=== PATIENT | female | born 1970 ===

== ENCOUNTER 2017-12-12 09:21 | Emergency (ER) | payer OTHER ==
[2017-12-12 09:37] VITALS: RESP 18; TEMP 99.2
[2017-12-12 11:11] LABS: HCG,QUALITATIVE URINE NEGATIVE (NEGATIVE)
[2017-12-12 11:15] LABS: SQUAMOUS EPITHIAL 1 /hpf (0-5); URINE BACTERIA RARE (<OCC); URINE BILIRUBIN NEGATIVE (NEGATIVE); URINE BLOOD 2+ (NEGATIVE); URINE CLARITY Clear (Clear); URINE COLOR Straw (YELLOW); URINE GLUCOSE (UA) NORMAL (Normal); URINE LEUKOCYTE ESTERASE NEG Leu/uL (Negative); URINE PROTEIN NEGATIVE (NEGATIVE); URINE UROBILINOGEN NORMAL mg/dL (0.2-1.0)
[2017-12-12 11:40] VITALS: O2SAT 100
[2017-12-12 12:15] VITALS: BP 111/77; PULSE 78
--- NOTE | 2017-12-12 12:16 | C.PDOC ---
History Of Present Illness 47 year old female with a history of hypothyroidism presents to the ED for evaluation of numbness to the left side of her face after eating a pear 1 day ago. Patient reports localized swelling to the left side of her face, cough, feeling dizzy, frequent urination, and recent weight gain. Denies allergies to medications, pain to the left side of her face, chest pain, fever, nausea, vomiting, and any other associated symptoms. Time Seen by Provider: 12/12/17 10:32 Chief Complaint (Nursing): Weakness/Neurological Deficit History Per: Patient History/Exam Limitations: no limitations Onset/Duration Of Symptoms: Days Current Symptoms Are (Timing): Still Present Past Medical History Reviewed: Historical Data, Nursing Documentation, Vital Signs Vital Signs: Last Vital Signs Temp 99.2 F 12/12/17 09:33 Pulse 69 12/12/17 11:40 Resp 18 12/12/17 11:40 BP 119/76 12/12/17 11:40 Pulse Ox 100 12/12/17 11:40 - Medical History PMH: No Chronic Diseases Family History: States: No Known Family Hx - Social History Hx Alcohol Use: No Hx Substance Use: No - Immunization History Hx Tetanus Toxoid Vaccination: No Hx Influenza Vaccination: No Hx Pneumococcal Vaccination: No Review Of Systems Except As Marked, All Systems Reviewed And Found Negative. Constitutional: Positive for: Other (weight gain.). Negative for: Fever, Chills Cardiovascular: Negative for: Chest Pain Respiratory: Positive for: Cough Gastrointestinal: Negative for: Nausea, Vomiting Genitourinary: Positive for: Frequency Neurological: Positive for: Numbness (to the left side of the face.), Dizziness, Other (swelling to the left side of the face. ) Physical Exam - Physical Exam Appears: Well, Non-toxic Skin: Normal Color, Warm, Dry Head: Atraumatic, Normacephalic, Swelling (to the left side of the face. ) Eye(s): bilateral: Normal Inspection Ear(s): Bilateral: Normal Oral Mucosa: Moist Neck: Normal ROM, Supple Chest: Symmetrical, No Deformity Cardiovascular: Rhythm Regular, No Murmur Respiratory: Normal Breath Sounds, No Rales, No Rhonchi, No Stridor Gastrointestinal/Abdominal: Normal Exam, Soft, No Tenderness Back: Normal Inspection, No CVA Tenderness, No Vertebral Tenderness, No Paraspinal Tenderness Extremity: Normal ROM (x4) Neurological/Psych: Oriented x3, Normal Speech, Normal Motor, Normal Sensation, Normal Reflexes ED Course And Treatment O2 Sat by Pulse Oximetry: 100 (RA) Pulse Ox Interpretation: Normal Medical Decision Making Medical Decision Making: Plan: --EKG --Glucose, POC Routine. --Urine Culture. --Urinalysis. --Urine HCG. Disposition - Disposition Referrals: Bisi Ny MD [Medical Doctor] - Disposition: HOME/ ROUTINE Disposition Time: 12:11 Condition: STABLE Additional Instructions: Follow up with the medical doctor within 1-2 days. Return if worsened. 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 - Scribe Statement The provider has reviewed the documentation as recorded by the Scribe (My Segal) All medical record entries made by the Scribe were at my direction and personally dictated by me. I have reviewed the chart and agree that the record accurately reflects my personal performance of the history, physical exam, medical decision making, and the department course for this patient. I have also personally directed, reviewed, and agree with the discharge instructions and disposition.
--- NOTE | 2017-12-13 16:05 | CARD ---
APPROVED REPORT Date of service: 12/12/2017 EKG Measurement Heart [id number] <Conclusion> Normal sinus rhythm Normal ECG
== END 2017-12-12 12:41 | disposition home or self-care (01) ==
LOC: C.ER 09:21
DX: K04.7 Periapical abscess without sinus (principal)